=== PATIENT | female | born 1935 | race Caucasian/White ===

== ENCOUNTER 2018-12-05 12:29 | Emergency (ER) | payer MEDICARE ==
[~2018-12-05] VITALS: Ht 149.9 cm; Wt 61.0 kg
--- NOTE | 2018-12-05 12:44 | NUR ---
LUNCH RN: PT DAVID REMSA FROM [facility] FOR HTN, NO COMPLAINTS FO CP, SOB, VELAZQUEZ. TOOK ALL PRESCRIBED BP MEDS AT 1100 TODAY WITHOUT BP COMING DOWN. PT STATES COMPLIANT WITH MEDS. CONNECTED TO ALL MONITORING, BP 209/61 OTHER VSS WNL. RESIDENT AT BEDSIDE FOR ASSESSMENT. SON AT BEDSIDE. CALL LIGHT WITHIN REACH. AWAITING FURTHER ORDERS AT THIS TIME
[2018-12-05] MEDS ORDERED: lisinopril (13:02)
[2018-12-05] MEDS ORDERED: amlodipine (13:02)
[2018-12-05] MEDS ORDERED: metoprolol (13:02)
[2018-12-05] MEDS ORDERED: Simvastatin (13:02)
[2018-12-05] MEDS ORDERED: eliquis (13:03)
[2018-12-05 13:22] LABS: BASOPHILS # (AUTO) 0.02 x10^3/uL (0-0.1); BASOPHILS % (AUTO) 0 % (0-1); EOSINOPHILS # (AUTO) 0.24 x10^3/uL (0-0.4); EOSINOPHILS % (AUTO) 4 % (1-7); LYMPHOCYTES # (AUTO) 1.88 x10^3/uL (1-3.4); LYMPHOCYTES % (AUTO) 27 % (22-44); MD NO; MEAN CORPUSCULAR HEMOGLOBIN 31.8 pg (27.0-34.8); MEAN CORPUSCULAR HGB CONC 31.9 g/dL (32.4-35.8); MEAN CORPUSCULAR VOLUME 99.8 fL (80-100); MEAN PLATELET VOLUME 7.5 fL (7.4-10.4); MONOCYTES % (AUTO) 7 % (2-9); NEUTROPHILS # (AUTO) 4.32 x10^3/uL (1.8-6.8); NEUTROPHILS % (AUTO) 62 % (42-75); PLATELET COUNT 255 x10^3/uL (130-400); RED BLOOD COUNT 4.13 x10^6/uL (3.82-5.3); RED CELL DISTRIBUTION WIDTH 16.6 % (9.6-15.2)
[2018-12-05 13:31] LABS: ALBUMIN 3.4 g/dL (3.4-5.0); ANION GAP 5 mmol/L (5-15); CALCIUM 9.2 mg/dL (8.5-10.1); CHLORIDE 113 mmol/L (98-107); CREATININE 0.86 mg/dL (0.55-1.02)
--- NOTE | 2018-12-05 13:32 | NUR ---
Patient ambulates with steady gait and balance to restroom with personal walker.
--- NOTE | 2018-12-05 13:33 | NUR ---
LATE NOTE ENTRY FOR 1300: Recieved report from Zulay Cho RN. All questions answered. Assuming care of pt.
[2018-12-05 13:35] LABS: TROPONIN I < 0.015 ng/mL (0.000-0.045)
--- NOTE | 2018-12-05 13:53 | NUR ---
REPORT FROM KADY COOK
--- NOTE | 2018-12-05 14:00 | NUR ---
PT SITTING UP IN [facility] NOTED. PT SPEAKING WITH REGISTRATION AND SIGNINS PAPERWORK WO DIFFICULTY. BP/SPO2/ECG MONITORING IN PLACE. NSR ON MONITOR, HR 69
[2018-12-05] MEDS ORDERED: hydrALAzine 20 MG/ML, 1ML ONE (14:26)
[2018-12-05] MEDS ORDERED: SODIUM CHLORIDE FLUSH 10ML SYR IVF ONE (14:30)
[2018-12-05] MEDS ORDERED: hydrALAzine 20 MG/ML, 1ML IV ONE (14:30)
--- NOTE | 2018-12-05 14:30 | NUR ---
IV ESTABLISHED. PT MEDICATED PER EMAR FOR HTN. PT CONTINUES TO DENY CP/VELAZQUEZ/FLANK PAIN/DIZZINESS. NSR ON MONITOR.
[2018-12-05 14:54] VITALS: BP 169/67
--- NOTE | 2018-12-05 15:03 | NUR ---
IMPROVEMENT IN BP NOTED. PT AMBULATED STEADILY TO BATHROOM ACROSS HALLWAY WITH WALKER. PT DENIES DIZZINESS/WEAKNESS/NAUSEA/CP/SOB.
--- NOTE | 2018-12-05 15:27 | NUR ---
PT CONTINUES TO DENY S/S. PT DRESSED SELF WO DIFFICULTY. DC EDUCATION PROVIDED, PT DEMONSTRATES UNDERSTANDING. PT AMBULATED STEADILY TO DC WITH RN USING OWN WALKER. SON TO MEET PT IN LOBBY FOR TRANSPORT HOME.
== END 2018-12-05 15:29 | disposition home or self-care (01) ==
LOC: ED 13:49
DX: I10 Essential (primary) hypertension (principal); E78.5 Hyperlipidemia, unspecified; Z86.718 Personal history of other venous thrombosis and embolism; Z96.641 Presence of right artificial hip joint
CPT/HCPCS: 36415; 80048; 82040; 84484; 85025; 93005; 96374; 99284; J0360